=== PATIENT | male | born 1985 | race Caucasian/White ===

== ENCOUNTER → 2019-01-21 | Outpatient (CLI) | payer MEDICARE, MEDICAID ==
[2019-01-21 14:28] LABS: POTASSIUM 3.2 MMOL/L (3.6-5.0); SODIUM 138 MMOL/L (135-145)
[2019-01-21 14:29] LABS: ALANINE AMINOTRANSFERASE 133 U/L (0-55); ALBUMIN 4.8 GM/DL (3.2-4.5); ALKALINE PHOSPHATASE 56 U/L (40-136); BILIRUBIN,TOTAL 0.8 MG/DL (0.1-1.0); BUN/CREATININE RATIO 20; CALCIUM 9.9 MG/DL (8.5-10.1); CARBON DIOXIDE 19 MMOL/L (21-32); CHLORIDE 95 MMOL/L (98-107); CREATININE SERUM 0.97 MG/DL (0.60-1.30); GFR ESTIMATED > 60; GLUCOSE 179 MG/DL (70-105); TOTAL PROTEIN 7.9 GM/DL (6.4-8.2)
== END ==
LOC: LAB FS 13:36
PROVIDERS: ATTEND Pediatrics
DX: E11.9 Type 2 diabetes mellitus without complications (principal)
CPT/HCPCS: 36415; 80053; 83036

== ENCOUNTER → 2019-02-24 | Outpatient (CLI) | payer MEDICARE, MEDICAID ==
[2019-02-24 19:34] LABS: CARBON DIOXIDE 32 MMOL/L (21-32); CHLORIDE 101 MMOL/L (98-107); POTASSIUM 3.9 MMOL/L (3.6-5.0); SODIUM 143 MMOL/L (135-145)
[2019-02-24 19:35] LABS: ALANINE AMINOTRANSFERASE 81 U/L (0-55); ALBUMIN 4.6 GM/DL (3.2-4.5); ALKALINE PHOSPHATASE 50 U/L (40-136); BILIRUBIN,TOTAL 0.4 MG/DL (0.1-1.0); BUN/CREATININE RATIO 14; CALCIUM 9.5 MG/DL (8.5-10.1); CREATININE SERUM 0.83 MG/DL (0.60-1.30); GFR ESTIMATED > 60; GLUCOSE 163 MG/DL (70-105)
== END ==
LOC: LAB FS 17:26
PROVIDERS: ATTEND Pediatrics
DX: R74.0 Nonspecific elevation of levels of transaminase and lactic acid dehydrogenase [LDH] (principal)
CPT/HCPCS: 36415; 80053

== ENCOUNTER 2020-02-02 18:38 | Emergency (ER) | payer MEDICARE, MEDICAID ==
[~2020-02-02] VITALS: Ht 172.2 cm; Wt 81.6 kg
--- OUTSIDE RECORDS SUMMARY | 2020-02-02 18:54 | XMS REPORT | Continuity of Care Document ---
Author Organization Unknown Address Unknown Phone Unavailable Allergies There is no data. Medications There is no data. Problems Date Dx Coded Attending Type Code Diagnosis Diagnosed By 01/22/2019 FAISAL NICHOLAS MD, Ot E11.9 TYPE 2 DIABETES MELLITUS WITHOUT COMPLIC 01/23/2019 FAISAL NICHOLAS MD, Ot E11.9 TYPE 2 DIABETES MELLITUS WITHOUT COMPLIC 02/14/2019 FAISAL NICHOLAS MD, Ot E11.9 TYPE 2 DIABETES MELLITUS WITHOUT COMPLIC 02/21/2019 FAISAL NICHOLAS MD, Ot E11.9 TYPE 2 DIABETES MELLITUS WITHOUT COMPLIC 03/18/2019 FAISAL NICHOLAS MD, Ot R74.0 NONSPEC ELEV OF LEVELS OF TRANSAMNS LA Procedures There is no data. Results Test Result Range Comprehensive metabolic panel - 01/21/19 13:45 Serum or plasma sodium measurement (moles/volume) 138 mmol/L 135-145 Serum or plasma potassium measurement (moles/volume) 3.2 mmol/L 3.6-5.0 Serum or plasma chloride measurement (moles/volume) 95 mmol/L 98-107 Carbon dioxide 19 mmol/L 21-32 Serum or plasma anion gap determination (moles/volume) 24 mmol/L 5-14 Serum or plasma urea nitrogen measurement (mass/volume ) 19 mg/dL 7-18 Serum or plasma creatinine measurement (mass/volume) 0.97 mg/dL 0.60-1.30 Serum or plasma urea nitrogen/creatinine mass ratio 20 NRG Serum or plasma creatinine measurement w ith calculation of estimated glomerular filtration rate > NRG Serum or plasma glucose measurement (mass/volume) 179 mg/dL 70-105 Serum or plasma calcium measurement (mass/volume) 9.9 mg/dL 8.5-10.1 Serum or plasma total bilirubin measurement (mass/volu me) 0.8 mg/dL 0.1-1.0 Serum or plasma alkaline phosphatase aubrey surement (enzymatic activity/volume) 56 U/L 40-136 Serum or plasma aspartate aminotransfera se measurement (enzymatic activity/volume) 63 U/L 5-34 Serum or plasma alanine aminotransferase measurement (enzymatic activity/volume) 133 U/L 0-55 Serum or plasma protein measurement (mass/volume) 7.9 g/dL 6.4-8.2 Serum or plasma albumin measurement (mass/volume) 4.8 g/dL 3.2-4.5 Hemoglobin A1c - 01/21/19 13:45 Blood hemoglobin A1C measurement (mass/volume) 6.5 % 4.0-5.6 MEAN BLOOD GLUCOSE 140 % <=126 Comprehensive metabolic panel - 02/24/19 17:45 Serum or plasma sodium measurement (moles/volume) 143 mmol/L 135-145 Serum or plasma potassium measurement (moles/volume) 3.9 mmol/L 3.6-5.0 Serum or plasma chloride measurement (moles/volume) 101 mmol/L 98-107 Carbon dioxide 32 mmol/L 21-32 Serum or plasma anion gap determination (moles/volume) 10 mmol/L 5-14 Serum or plasma urea nitrogen measurement (mass/volume ) 12 mg/dL 7-18 Serum or plasma creatinine measurement (mass/volume) 0.83 mg/dL 0.60-1.30 Serum or plasma urea nitrogen/creatinine mass ratio 14 NRG Serum or plasma creatinine measurement w ith calculation of estimated glomerular filtration rate > NRG Serum or plasma glucose measurement (mass/volume) 163 mg/dL 70-105 Serum or plasma calcium measurement (mass/volume) 9.5 mg/dL 8.5-10.1 Serum or plasma total bilirubin measurement (mass/volu me) 0.4 mg/dL 0.1-1.0 Serum or plasma alkaline phosphatase aubrey surement (enzymatic activity/volume) 50 U/L 40-136 Serum or plasma aspartate aminotransfera se measurement (enzymatic activity/volume) 31 U/L 5-34 Serum or plasma alanine aminotransferase measurement (enzymatic activity/volume) 81 U/L 0-55 Serum or plasma protein measurement (mass/volume) 7.0 g/dL 6.4-8.2 Serum or plasma albumin measurement (mass/volume) 4.6 g/dL 3.2-4.5 Encounters ACCT No. Visit Date/Time Discharge Status Pt. Type Provider Facility Loc./Unit Complaint [id number] 04/24/2019 08:00:00 04/24/2019 23:59: 59 CLS Outpatient [facility] [id number] 02/24/2019 17:26:00 019 23:59:59 CLS Outpatient CRISTOPHER CARDONA, FAISAL de leon [facility] LAB FS METABOLIC PANEL [id number] 01/21/2019 13:36:00 23:59:59 CLS Outpatient CRISTOPHER CARDONA, FAISAL de leon [facility] LAB FS [id number]
--- NOTE | 2020-02-02 19:32 | ED Cough/URI ---
General Stated Complaint: COUGH,COLD CHILLS,TROUBLE BREATHING Source: patient, family History of Present Illness Date Seen by Provider: Feb 02, 2020 Time Seen by Provider: 19:10 Initial Comments 34-year-old male presents with cough, feeling short of breath, chills. Patient has known exposure to Covid 19. Patient has mental disability and lives with his sister. His sister runs a daycare had a positive child so he has known exposure. Patient's main complaint is he feels like he 7 heart time breathing. Patient did not report any nausea vomiting chest pain or any other systemic complaints. Allergies and Home Medications Allergies Coded Allergies: No Known Drug Allergies (Unverified , 02/02/20) Patient Home Medication List Home Medication List Reviewed: Yes Review of Systems Review of Systems Constitutional: chills, malaise Respiratory: cough, short of breath Cardiovascular: No chest pain Gastrointestinal: no symptoms reported Genitourinary: no symptoms reported Musculoskeletal: no symptoms reported Skin: no symptoms reported Psychiatric/Neurological: No Symptoms Reported Past Wyrqgyn-Oupgax-Dvhhxz Hx Past Med/Social Hx: Reviewed Nursing Past Med/Soc Hx Patient Social History Recent Foreign Travel: No Contact w/Someone Who Travel: No Physical Exam Vital Signs - First Documented 02/02/20 19:03 Temp 37.3 Pulse 88 Resp 16 B/P (MAP) 173/96 (121) Pulse Ox 97 O2 Delivery Room Air Capillary Refill : Height: '" Weight: lbs. oz. kg; BMI Method: General Appearance: WD/WN, no apparent distress Respiratory: no respiratory distress, no accessory muscle use Cardiovascular: normal peripheral pulses, regular rate, rhythm Gastrointestinal: non tender, soft Neurologic/Psychiatric: alert, normal mood/affect, oriented x 3 Skin: normal color, warm/dry Progress/Results/Core Measures Suspected Sepsis SIRS Temperature: Pulse: Respiratory Rate: Blood Pressure / Mean: Results/Orders Lab Results Laboratory Tests Test 02/02/20 19:20 Range/Units Group A Streptococcus Screen NEGATIVE NEGATIVE Micro Results Microbiology 02/02/20 Influenza Types A,B Antigen (MATTY) - Final, Complete My Orders Orders - IVAN PRICE DO Influenza A And B Antigens (02/02/20 19:19) Rapid Strep A Screen (02/02/20 19:19) 2019 Coronavirus Sars-Cov-2 So (02/02/20 19:19) Chest 1 View Ap/Pa Only (02/02/20 19:19) Vital Signs/I&O 02/02/20 19:03 Temp 37.3 Pulse 88 Resp 16 B/P (MAP) 173/96 (121) Pulse Ox 97 O2 Delivery Room Air Capillary Refill : Departure Impression Primary Impression: Viral upper respiratory infection Disposition: HOME, SELF-CARE Condition: Stable Departure-Patient Inst. Referrals: FAISAL NICHOLAS MD (PCP/Family) Primary Care Physician Patient Instructions: COVID19 Add. Discharge Instructions: Incentive spirometry or similar exercise 3-4 times a day Tylenol or ibuprofen as needed for fever If possible please obtain a home finger pulse ox and check 3 times daily Return to the ER with worsening chest pain or shortness of breath Emergency department focuses on treating and ruling out life-threatening diseases. Whenever possible, a diagnosis is given. However, most patients are given an impression based on their history, physical exam, and workup during your brief time in the ER. Information about probable diagnosis and other educational material has been provided. Please take the time to read and understand this information. It is very important that you follow up with a physician as discussed during the visit today. Failure to adhere to your follow-up instructions may lead to severe disability, injury, or so please make sure to keep your appointments or obtain one as requested. Please keep in mind the emergency department is not designed to your primary care or "family doctor" and nonurgent issues are best e valuated by an outpatient physician IVAN PRICE DO Feb 02, 2020 19:32
--- NOTE | 2020-02-02 19:35 | Diagnostic Imaging Report ---
INDICATION: Cough and fever COMPARISON: None FINDINGS: Single frontal view of the chest demonstrates normal heart size and pulmonary vascularity. The lungs are well aerated and clear. No large pleural effusion or pneumothorax is seen. The visualized osseous structures show no acute abnormalities. IMPRESSION: 1. No acute cardiopulmonary process. Dictated by: Dictated on workstation # [id number]
[2020-02-02 20:00] VITALS: BP 153/85
== END 2020-02-02 20:02 | disposition home or self-care (01) ==
LOC: EDUNIT# 18:38 → ER FS 18:40
DX: J06.9 Acute upper respiratory infection, unspecified (principal)
CPT/HCPCS: 36415; 71045; 87430; 87635; 87804

== ENCOUNTER 2021-03-22 11:42 | Emergency (ER) | payer MEDICARE, MEDICAID ==
[~2021-03-22] VITALS: Ht 172.7 cm; Wt 81.6 kg
[2021-03-22] MEDS ORDERED: fentaNYL INJ 100 MCG/2 ML AMP IVP ONE ×2 (12:00→12:30)
[2021-03-22] MEDS ORDERED: ONDANSETRON 4 MG/2 ML (SDV) Z0FRAN IVP ONE ×2 (12:00→12:30)
[2021-03-22] MEDS ORDERED: NS IV 1000 ML 1,000 ML IV SCH (12:00)
[2021-03-22 12:05] LABS: HEMATOCRIT 42 % (40-54); HEMOGLOBIN 14.6 G/DL (13.3-17.7); MEAN CORPUSCULAR HEMOGLOBIN 29 PG (25-34); MEAN CORPUSCULAR HGB CONC 35 G/DL (32-36); MEAN CORPUSCULAR VOLUME 83 FL (80-99); MEAN PLATELET VOLUME 10.3 FL (7.4-10.4); PLATELET COUNT 308 10^3/uL (130-400); WHITE BLOOD COUNT 10.5 10^3/uL (4.3-11.0)
[2021-03-22 12:06] LABS: BASOPHILS # (AUTO) 0.1 10^3/uL (0.0-0.1); BASOPHILS % (AUTO) 0 % (0-10); EOSINOPHILS # (AUTO) 0.1 10^3/uL (0.0-0.3); EOSINOPHILS % (AUTO) 1 % (0-10); LYMPHOCYTES # (AUTO) 2.6 X 10^3 (1.0-4.0); LYMPHOCYTES % (AUTO) 25 % (12-44); MONOCYTES # (AUTO) 0.7 X 10^3 (0.0-1.0); MONOCYTES % (AUTO) 6 % (0-12); NEUTROPHILS % (AUTO) 67 % (42-75)
[2021-03-22 12:18] LABS: COLOR,URINE YELLOW
[2021-03-22 12:19] LABS: BACTERIA,URINE TRACE /HPF; BILIRUBIN,URINE NEGATIVE (NEGATIVE); CLARITY,URINE SLT CLOUDY; GLUCOSE, URINE (UA) NEGATIVE (NEGATIVE); KETONES,URINE NEGATIVE (NEGATIVE); LEUKOCYTE ESTERASE ,URINE NEGATIVE (NEGATIVE); NITRITE,URINE NEGATIVE (NEGATIVE); PH,URINE 5.5 (5-9); PROTEIN,URINE 1+ (NEGATIVE); RBC,URINE 50-100 /HPF; SQUAMOUS EPITHELIAL CELL,UR RARE /HPF; WBC,URINE 0-2 /HPF
[2021-03-22] MEDS ORDERED: NS 100 ML (IVPB) BAG IV ONE (12:30)
[2021-03-22] MEDS ORDERED: HOLD METFORMIN - RECEIVED CONTRAST 20 ML VIAL IV SCH (12:30)
[2021-03-22] MEDS ORDERED: KETOROLAC 30 MG/ML VIAL IVP ONE (12:30)
[2021-03-22] MEDS ORDERED: IOHEXOL 350 MG/ML 100 ML (OMNIPAQUE 350) VIAL IV ONE (12:30)
[2021-03-22] MEDS ORDERED: CATHETER FLUSH 10 ML SYR IV PRN (12:30)
[2021-03-22 12:31] LABS: CARBON DIOXIDE 25 MMOL/L (21-32); CHLORIDE 99 MMOL/L (98-107); POTASSIUM 3.6 MMOL/L (3.6-5.0); SODIUM 138 MMOL/L (135-145)
[2021-03-22 12:32] LABS: ALANINE AMINOTRANSFERASE 90 U/L (0-55); ALBUMIN 4.7 GM/DL (3.2-4.5); ALKALINE PHOSPHATASE 67 U/L (40-136); BILIRUBIN,TOTAL 0.7 MG/DL (0.1-1.0); BUN/CREATININE RATIO 21; CREATININE SERUM 1.04 MG/DL (0.60-1.30); GFR ESTIMATED > 60; GLUCOSE 177 MG/DL (70-105); LIPASE 28 U/L (8-78); TOTAL PROTEIN 7.7 GM/DL (6.4-8.2)
--- NOTE | 2021-03-22 12:35 | ED General ---
General Chief Complaint: Abdominal/GI Problems Stated Complaint: ABD PAIN Nursing Triage Note: Patient reports sudden onset of nausea/vomiting and bilateral lower abdominal pain approximately 1 hour ago. He states the pain is worse with urinating and bowel movements. Nursing Sepsis Screen: No Definite Risk History of Present Illness Date Seen by Provider: March 22, 2021 Time Seen by Provider: 12:32 Initial Comments Patient presenting to the emergency department for evaluation of sudden onset abdominal pain with nausea and vomiting that started approximately 1 hour prior to arrival. Patient states that he may have some dysuria and constipation but no fevers chills diarrhea or testicular pain. Pain is mostly in the left upper quadrant but can go to the right side and down his left lower abdomen as well. Patient denies ever having any abdominal surgeries. He appears uncomfortable but is nontoxic with normal vital signs. Allergies and Home Medications Allergies Coded Allergies: No Known Drug Allergies (Unverified , 02/02/20) Patient Home Medication List Home Medication List Reviewed: Yes Review of Systems Review of Systems Constitutional: no symptoms reported EENTM: no symptoms reported Respiratory: no symptoms reported Cardiovascular: no symptoms reported Gastrointestinal: abdominal pain (LUQ), constipation, nausea, vomiting Genitourinary: dysuria Musculoskeletal: no symptoms reported Skin: no symptoms reported Psychiatric/Neurological: No Symptoms Reported All Other Systems Reviewed Negative Unless Noted: Yes Past Mqodbrb-Wfqjvz-Jcqbcv Hx Patient Social History Alcohol Use: Denies Use Smoking Status: Never a Smoker 2nd Hand Smoke Exposure: No Recent Infectious Disease Expo: No Recent Hopitalizations: No Seasonal Allergies Seasonal Allergies: No Past Medical History Surgeries: No Respiratory: No Cardiac: Yes Hypertension Neurological: Yes (seizures as a child) Seizure Disorder Genitourinary: No Gastrointestinal: No Musculoskeletal: No Endocrine: Yes Diabetes, Non-Insulin dep HEENT: No Cancer: No Psychosocial: No Integumentary: No Blood Disorders: No Physical Exam Vital Signs Vital Signs - First Documented 03/22/21 11:44 Temp 36.8 Pulse 76 Resp 18 B/P (MAP) 158/84 (108) Pulse Ox 95 O2 Delivery Room Air Capillary Refill : Less Than 3 Seconds Height, Weight, BMI Height: '" Weight: lbs. oz. kg; 27.00 BMI Method: General Appearance: No Apparent Distress, WD/WN HEENT: PERRL/EOMI Neck: Supple Respiratory: No Respiratory Distress Cardiovascular: Regular Rate, Rhythm Gastrointestinal: Soft, Tenderness (Positive left upper quadrant tenderness to palpation with mild tenderness palpation epigastrium and left lower quadrant. No rebound or guarding) Back: Normal Inspection Extremity: Normal Capillary Refill Skin: Warm/Dry Progress/Results/Core Measures Suspected Sepsis Recent Fever Within 48 Hours: No Infection Criteria Present: Suspected New Infection New/Unexplained Altered Menta: No Sepsis Screen: No Definite Risk SIRS Temperature: Pulse: 76 Respiratory Rate: 18 Laboratory Tests 03/22/21 11:45: White Blood Count 10.5 Blood Pressure 158 /84 Mean: 108 Laboratory Tests 03/22/21 11:45: Creatinine 1.04, Platelet Count 308, Total Bilirubin 0.7 Results/Orders Lab Results Laboratory Tests Test 03/22/21 11:45 03/22/21 12:04 Range/Units White Blood Count 10.5 4.3-11.0 10^3/uL Red Blood Count 5.11 4.35-5.85 10^6/uL Hemoglobin 14.6 13.3-17.7 G/DL Hematocrit 42 40-54 % Mean Corpuscular Volume 83 80-99 FL Mean Corpuscular Hemoglobin 29 25-34 PG Mean Corpuscular Hemoglobin Concent 35 32-36 G/DL Red Cell Distribution Width 12.4 10.0-14.5 % Platelet Count 308 130-400 10^3/uL Mean Platelet Volume 10.3 7.4-10.4 FL Immature Granulocyte % (Auto) 1 % Neutrophils (%) (Auto) 67 42-75 % Lymphocytes (%) (Auto) 25 12-44 % Monocytes (%) (Auto) 6 0-12 % Eosinophils (%) (Auto) 1 0-10 % Basophils (%) (Auto) 0 0-10 % Neutrophils # (Auto) 7.0 1.8-7.8 X 10^3 Lymphocytes # (Auto) 2.6 1.0-4.0 X 10^3 Monocytes # (Auto) 0.7 0.0-1.0 X 10^3 Eosinophils # (Auto) 0.1 0.0-0.3 10^3/uL Basophils # (Auto) 0.1 0.0-0.1 10^3/uL Immature Granulocyte # (Auto) 0.1 0.0-0.1 10^3/uL Sodium Level 138 135-145 MMOL/L Potassium Level 3.6 3.6-5.0 MMOL/L Chloride Level 99 98-107 MMOL/L Carbon Dioxide Level 25 21-32 MMOL/L Anion Gap 14 5-14 MMOL/L Blood Urea Nitrogen 22 H 7-18 MG/DL Creatinine 1.04 0.60-1.30 MG/DL Estimat Glomerular Filtration Rate > 60 BUN/Creatinine Ratio 21 Glucose Level 177 H 70-105 MG/DL Calcium Level 10.0 8.5-10.1 MG/DL Corrected Calcium 8.5-10.1 MG/DL Total Bilirubin 0.7 0.1-1.0 MG/DL Aspartate Amino Transf (AST/SGOT) 47 H 5-34 U/L Alanine Aminotransferase (ALT/SGPT) 90 H 0-55 U/L Alkaline Phosphatase 67 40-136 U/L Total Protein 7.7 6.4-8.2 GM/DL Albumin 4.7 H 3.2-4.5 GM/DL Lipase 28 8-78 U/L Urine Color YELLOW Urine Clarity SLT CLOUDY Urine pH 5.5 5-9 Urine Specific [place]ona 1.025 H 1.016-1.022 Urine Protein 1+ H NEGATIVE Urine Glucose (UA) NEGATIVE NEGATIVE Urine Ketones NEGATIVE NEGATIVE Urine Nitrite NEGATIVE NEGATIVE Urine Bilirubin NEGATIVE NEGATIVE Urine Urobilinogen 0.2 < = 1.0 MG/DL Urine Leukocyte Esterase NEGATIVE NEGATIVE Urine RBC (Auto) 3+ H NEGATIVE Urine RBC 50-100 H /HPF Urine WBC 0-2 /HPF Urine Squamous Epithelial Cells RARE /HPF Urine Crystals NONE /LPF Urine Bacteria TRACE /HPF Urine Casts NONE /LPF Urine Mucus SMALL H /LPF Urine Culture Indicated NO My Orders Orders - MARIBEL GUTIERREZ DO Cbc With Automated Diff (03/22/21 11:58) Comprehensive Metabolic Panel (03/22/21 11:58) Ua Culture If Indicated (03/22/21 11:58) Lipase (03/22/21 11:58) Iv/Invasive Line Insertion .IV start (03/22/21 11:58) Ns Iv 1000 Ml (Sodium Chloride 0.9%) (03/22/21 12:00) Ondansetron Injection (Zofran Injectio (03/22/21 12:00) Fentanyl Inj (Sublimaze Injection) (03/22/21 12:00) Iohexol Injection (Omnipaque 350 Mg/Ml 1 (03/22/21 12:30) Received Contrast (Hold Metformin- Contr (03/22/21 12:30) Sodium Chloride Flush (Catheter Flush Sy (03/22/21 12:30) Ns (Ivpb) (Sodium Chloride 0.9% Ivpb Bag (03/22/21 12:30) Ct Abd/Pelvis Wo(Kidney Stone) (03/22/21 11:58) Ondansetron Injection (Zofran Injectio (03/22/21 12:30) Ketorolac Injection (Toradol Injection) (03/22/21 12:30) Fentanyl Inj (Sublimaze Injection) (03/22/21 12:30) Promethazine Injection (Phenergan Injec (03/22/21 13:30) Morphine Injection (Morphine Injection (03/22/21 13:16) Oxycodone/Apap 5/325mg Tablet (Percocet (03/22/21 14:00) Medications Given in ED Current Medications Medications Dose Ordered Sig/Candelario Route Start Time Stop Time Status Last Admin Dose Admin Fentanyl Citrate 75 mcg ONCE ONCE IVP 03/22/21 12:00 03/22/21 12:01 DC 03/22/21 12:05 75 MCG Fentanyl Citrate 75 mcg ONCE ONCE IVP 03/22/21 12:30 03/22/21 12:32 DC 03/22/21 12:46 75 MCG Ketorolac Tromethamine 15 mg ONCE ONCE IVP 03/22/21 12:30 03/22/21 12:32 DC 03/22/21 12:46 15 MG Ondansetron HCl 4 mg ONCE ONCE IVP 03/22/21 12:00 03/22/21 12:01 DC 03/22/21 12:05 4 MG Ondansetron HCl 4 mg ONCE ONCE IVP 03/22/21 12:30 03/22/21 12:32 DC 03/22/21 12:46 4 MG Oxycodone/ Acetaminophen 1 tab ONCE ONCE PO 03/22/21 14:00 03/22/21 14:01 DC 03/22/21 13:55 1 TAB Promethazine HCl 12.5 mg ONCE ONCE IVP 03/22/21 13:30 03/22/21 13:31 DC 03/22/21 13:26 12.5 MG Vital Signs/I&O 03/22/21 11:44 Temp 36.8 Pulse 76 Resp 18 B/P (MAP) 158/84 (108) Pulse Ox 95 O2 Delivery Room Air Capillary Refill : Less Than 3 Seconds Blood Pressure Mean: 108 Progress Note : Progress Note I initially ordered a CT with contrast but given my initial suspicion that this could be a kidney stone at there is a large hematuria I will pursue CT without c ontrast initially and then see if further imaging is necessary. Patient symptoms minimally improved I will give him additional pain and nausea medications. Patient had multiple recurrences of his pain due to his kidney stone. I discussed all findings on CT including the incidental findings including the renal findings and liver findings on CT and note elevated liver enzymes and the need for follow-up. Regarding his immediate problem of the kidney stone I spoke to the urologist on-call, Dr. Avelar and he said he would be unable to outpatient immediately as he is leaving [facility] for 1 week starting tomorrow and that if patient required further treatment for his kidney stone immediately he would require transfer to another facility. I discussed this with patient and mother and they stated that they would prefer not to be transferred to another facility such as [place] or [place] and would like to try and pass the stone on his own. Patient did have improvement and was able to tolerate fluids by mouth however he still was symptomatic but the pain was not nearly as severe as when he initially came in. Patient and mother felt comfortable going home and said they would follow with Dr. Avelar when he was available. I recommended he come back to the emergency department if he has worsening pain fevers vomiting or other general concerns. Patient and mother aware and agreeable with plan and verbalized understanding of the above instructions. Departure Impression Primary Impression: Left ureteral calculus Additional Impressions: Hydronephrosis, left Transaminitis Renal cyst, right Disposition: 01 HOME, SELF-CARE Condition: Stable Departure-Patient Inst. Referrals: FAISAL NICHOLAS MD (PCP/Family) Primary Care Physician Patient Instructions: Renal Colic Add. Discharge Instructions: Drink plenty of fluids. Follow with Dr. Avelar next week. Come back to the ED with worsening pain, fevers, vomiting, or other concerns. Thank you! All discharge instructions reviewed with patient and/or family. Voiced understanding. Scripts Tamsulosin HCl (Flomax) 0.4 Mg Cap 0.4 MG PO DAILY, #7 CAP Prov: MARIBEL GUTIERREZ DO 03/22/21 Ondansetron (Ondansetron Odt) 4 Mg Tab.rapdis 4 MG PO Q6H PRN for NAUSEA/VOMITING-1ST LINE, #20 TAB Prov: MARIBEL GUTIERREZ DO 03/22/21 Oxycodone HCl/Acetaminophen (Percocet 5-325 mg Tablet) 1 Each Tablet 1 TAB PO Q6H PRN for PAIN-MODERATE MDD 6 for 7 Days, #20 TAB Prov: MARIBEL GUTIERREZ DO 03/22/21 Ibuprofen (Ibuprofen) 600 Mg Tablet 600 MG PO Q6H PRN for PAIN-MILD for 7 Days, TAB Prov: MARIBEL GUTIERREZ DO 03/22/21 MARIBEL GUTIERREZ DO March 22, 2021 12:35
--- NOTE | 2021-03-22 13:07 | Diagnostic Imaging Report ---
EXAMINATION: CT ABD/PELVIS WO(KIDNEY STONE). TECHNIQUE: Unenhanced CT imaging of the abdomen and pelvis was performed. 2-D reformats are created and submitted for interpretation. Automatic exposure controls were utilized to optimize patient dose. INDICATION: Left-sided abdominal pain. COMPARISON: None available. FINDINGS: Evaluation of the abdominal viscera is mildly limited without contrast. Lower chest: The lung bases are clear. No pericardial or pleural effusion. Peritoneum: No free intraperitoneal air or fluid. Liver and biliary system: Liver measures 15 cm in craniocaudal dimension. It has diffuse hypoattenuation indicative of hepatic steatosis. No focal hepatic lesion is appreciated by noncontrast imaging. The gallbladder is normal. No biliary duct dilation. Spleen and Pancreas: Spleen is normal. Unenhanced pancreas is grossly normal. Adrenals: Normal. tract: Mild left hydronephrosis due to a 4 mm stone in the proximal one-third of the left ureter. No right renal or ureteral stones. Indeterminate exophytic slightly hypodense 2.0 x 1.7 cm nodule in the upper pole of the right kidney. Urinary bladder is partially filled without isolated wall thickening. Prostate is not enlarged. GI tract: Stomach is partially filled with fluid and air, and there is no focal wall thickening. No bowel obstruction. No pericolonic inflammatory changes. Normal appendix. Vasculature and Lymph nodes: Normal caliber aorta. No abdominal or pelvic lymphadenopathy. Musculoskeletal: No concerning osseous lesion. IMPRESSION: 1. Mild left hydronephrosis due to a 4 mm partially obstructing stone in the proximal one-third of the left ureter. 2. Indeterminate 2 cm lesion in the upper pole of the right kidney that may represent a complicated cyst. This will require further assessment with a nonemergent/outpatient CT of the abdomen and pelvis without with IV contrast per the renal mass protocol. 3. Diffuse hepatic steatosis. Dictated by: Dictated on workstation # [id number]
[2021-03-22] MEDS ORDERED: morphine INJ 10 MG/ML 1ML (SYR OR VIAL) IVP STA (13:16)
[2021-03-22] MEDS ORDERED: PROMETHAZINE INJ 25 MG/ML (PHENERGAN) AMP IVP ONE (13:30)
[2021-03-22] MEDS ORDERED: oxyCODONE/APAP 5/325MG (PERCOCET 5) TABLET PO ONE (14:00)
[2021-03-22] MEDS ORDERED: TMSL.4C PO (14:48)
[2021-03-22] MEDS ORDERED: OXYC-199 PO (14:48)
[2021-03-22] MEDS ORDERED: ONDA4TAB11 PO (14:48)
[2021-03-22] MEDS ORDERED: IBUP-1773 PO (14:48)
[2021-03-22 15:00] VITALS: BP 148/84
== END 2021-03-22 15:00 | disposition home or self-care (01) ==
LOC: EDUNIT# 11:42 → ER FS 11:44
DX: N13.2 Hydronephrosis with renal and ureteral calculous obstruction (principal); R74.01 Elevation of levels of liver transaminase levels; N28.1 Cyst of kidney, acquired; I10 Essential (primary) hypertension; E11.9 Type 2 diabetes mellitus without complications
CPT/HCPCS: 36415; 74176; 80053; 81000; 83690; 85025